=== PATIENT | female | born 1970 | race Caucasian/White ===

== ENCOUNTER 2017-03-11 13:02 | Emergency (ER) | payer MEDICAID ==
[2015-12-07 07:31] VITALS: BMI 32.2
[~2017-03-11 13:02] MED LIST: GLUCOPHAGE1000 MG PO; LISINOPRIL10 MG PO; METOPROLOL TAR100 M1 PO; MIRAPEX1 MG PO; NASONEX NASAL S17 GM NS; TRADJENTA5 MG PO; VISTARIL25 MG PO; ZETIA10 MG PO
[2017-03-11 13:44] LABS: BASOPHILS 0.4 % (0-2); EOSINOPHILS 1.3 % (0-7); HEMATOCRIT 42.5 % (36.0-48.0); HEMOGLOBIN 14.5 g/dL (12-16); IMMATURE GRANULOCYTES 0.5 % (0-5); LYMPHOCYTES 33.7 % (15-50); MCH 30.9 pg (26.0-34.0); MCHC 34.1 g/dL (31.0-37.0); MCV 90.4 fL (80.0-100.0); MEAN PLATELET VOLUME 9.5 fL (7.4-10.4); MONOCYTES 6.5 % (2-11); NEUTROPHILS 57.6 % (40-80); PLATELET COUNT 373 10x3/uL (130-400); RDW 12.9 % (11.5-14.5)
[2017-03-11 14:38] LABS: ALBUMIN 2.9 g/dL (3.4-5.0); ALKALINE PHOSPHATASE 58 U/L (46-116); ALT (SGPT) 21 U/L (10-68); CALC OSMOLALITY 284 mosm/kg (275-300); CALCIUM 8.8 mg/dL (8.5-10.1); CARBON DIOXIDE 25.5 mmol/L (21.0-32.0); CHLORIDE - SERUM 105 mmol/L (98-107); CREATININE - SERUM 0.9 mg/dL (0.6-1.3); POTASSIUM - SERUM 4.1 mmol/L (3.5-5.1); PROTEIN - SERUM 6.3 g/dL (6.4-8.2); SODIUM 140 mmol/L (136-145); UREA NITROGEN 21 mg/dL (7-18); eGFR NON AFRICAN AMERICAN 71 mL/min (90-120)
[2017-03-11 14:49] LABS: CHOL - HDL RATIO 8.1 ratio (2.3-4.1); CHOLESTEROL, TOTAL 266 mg/dL (0-200); CKMB 0.5 U/L (0.0-3.6); CREATINE KINASE 43 UL (21-215); HDL CHOLESTEROL 33 mg/dL (32-96); TRIGLYCERIDE 414 mg/dL (30-200); TROPONIN-I < 0.017 ng/mL (0.000-0.060)
[2017-03-11 15:18] LABS: GLUCOSE 156 mg/dL (74-106)
== END 2017-03-11 16:25 | disposition home or self-care (01) ==
LOC: D.ER 13:02
PROVIDERS: Family Medicine
DX: R07.81 Pleurodynia (principal); E11.9 Type 2 diabetes mellitus without complications; D72.829 Elevated white blood cell count, unspecified; F17.200 Nicotine dependence, unspecified, uncomplicated; I10 Essential (primary) hypertension